=== PATIENT | female | born 1950 | race Caucasian/White ===

== ENCOUNTER 2020-08-15 18:03 | Inpatient (IN) | payer OTHER, SELFPAY ==
[~2020-08-15] VITALS: Ht 154.9 cm; Wt 56.4 kg
[2020-08-15 18:24] VITALS: Ht 154.9 cm; Wt 56.4 kg
--- NOTE | 2020-08-15 18:40 | NUR ---
PT BIBA [facility] C/O COVID SYMPTOMS X9DAYS. PT STATES SHE HAS HAD COVID SYMPTOMS SUCH FEVER, CHILLS, COUGH, SOB, MAGAÑA. STATES HER SOB WORSENED TODAY AND CALLED 911. PT STATES SHE WAS TESTED FOR COVID X6DAYS AGO AND RESULTED POSITIVE. PT NOTED TO BE 88% ON RA UPON ARRIVAL, AAOX4, AND NOTED SOB ON EXERTION. PT WAS AMBULATORY TO [facility] WITH A STEADY GAIT. DENIES PRIOR HX AND MEDICATIONS. STATES HER CURRENT MEDICATIONS WERE PRESCRIBED BY HER MD RECENTLY FOR COVID.
--- NOTE | 2020-08-15 19:19 | NUR ---
RECIEVED PT REPORT FROM DAY RN, FOR CONTINUITY OF CARE. I WILL NOW ASSUME PRIMARY CARE OF THE PT
[2020-08-15 19:38] LABS: PLATELET COUNT 234 x10^3mcL (179-408); RED CELL DISTRIBUTION WIDTH 12.4 % (12.3-17.7)
[2020-08-15 19:42] LABS: CALCIUM 8.3 mg/dL (8.5-10.1); CARBON DIOXIDE 28.1 mmol/L (21-32); CHLORIDE SERUM 94 mmol/L (98-107); CREATININE SERUM 0.8 mg/dL (0.6-1.0); GFR1 > 60 mL/min; GLUCOSE SERUM 112 mg/dL (74-106); POTASSIUM SERUM 3.6 mmol/L (3.5-5.1); SODIUM SERUM 135 mmol/L (136-145)
[2020-08-15 19:47] LABS: ALBUMIN 3.5 g/dL (3.4-5.0); ALKALINE PHOSPHATASE 81 U/L (46-116); ALT/SGPT 37 U/L (14-59); AST/SGOT 34 U/L (15-37); BILIRUBIN TOTAL 0.4 mg/dL (0.20-1.00); C REACTIVE PROTEIN 11.3 mg/dL (<=0.9); TOTAL PROTEIN, SERUM 8.1 g/dL (6.4-8.2)
[2020-08-15 19:49] LABS: BASOPHIL % 2.6 % (0.2-1.3)
--- NOTE | 2020-08-15 20:02 | NUR ---
RT AT BEDSIDE
--- NOTE | 2020-08-15 20:41 | NUR ---
PT TRANSFERRED FROM COVID TENT TO ROOM 15 FOR CONTINUITY OF CARE
--- NOTE | 2020-08-15 21:00 | NUR ---
PT RECEIVED IN ROOM. PT AOX4, SKIN W/D/I, RESP EVEN AND UNLABORED ON 3 L NC, VSS, NAD, PT STABLE AT THIS TIME
[2020-08-15 22:01] LABS: microscopic required? YES; urine erythrocyte TRACE (NEGATIVE)
--- NOTE | 2020-08-15 22:24 | NUR ---
NOTIFIED RT OF [facility]BUTEROL LINDSEY BUSCH. PT AOX4, SKIN W/D/I, RESP EVEN AND UNLABORED ON 3 L NC, PT STABLE AT THIS TIME
--- NOTE | 2020-08-16 00:01 | NUR ---
PT SLEEPING BUT EASILY AROUSABLE, RESP EVEN AND UNLABORED ON 3 L NC, SKIN W/D/I, NAD, PT STABLE AT THIS TIME
--- NOTE | 2020-08-16 02:15 | NUR ---
GAVE REPORT TO EARNEST MERCADO. PT AOX4, SKIN W/D/I, RESP EVEN AND UNLABORED ON 3 L NC, NAD, AMB WITH STEADY GAIT, PT STABLE AT THIS TIME
--- NOTE | 2020-08-16 03:10 | NUR ---
PT TRANSPORTED TO [facility] VIA [facility] ON CM BY ESPINOZA TINOCO AND JUANITA SCHMITZ.PT IN NAD
--- NOTE | 2020-08-16 03:30 | NUR ---
RECEIEVED PT FROM ED. A/OX4, FOLLOWS COMMANDS, SPEECH CLEAR. TELE 34, SINUS KIMBERLEE, HR 59. DENIES CHEST PAIN, PRESSURE, AND PALPITATIONS. DENIES PAIN. PULSES PALPABLE TO BUE/BLE. NO EDEMAN NOTED. ON 3L N/C, SPO2 95%, NO RESPIRATORY DISTRESS AT THIS TIME, BREATHING UNLABORED AND REGULAR, EVEN CHEST RISE. LUNG SOUNDS DIMINISHED. BS ACTIVE X4 QUADS, ABD SOFT, FLAT, AND NONTENDER. DENIES PAIN OR BURNING ON URINATION. GENERALIZED WEAKNESS NOTED. AMBULATORY. SKIN CLEAR. IV L AC, SL. MADE PT COMFORTABLE IN BED. BED IN LOW POSITION. CALL LIGHT WITHIN REACH. WILL CONTINUE TO MONITOR.
--- NOTE | 2020-08-16 04:10 | NUR ---
PT C/O MAGAÑA AND REQUESTED PAIN MEDICATION. GAVE PRN TYLENOL. IV LAC INFILTRATED. NEW IV ACCESS IN L FOREARM 22G, SL.
[2020-08-16 04:26] VITALS: BP 103/60
[2020-08-16 05:40] VITALS: BP 95/46
--- NOTE | 2020-08-16 07:19 | NUR ---
CALLED AND NOTIFIED DR. LUIS/DR. VEE (AEROGRAPHER FOR DR. LUIS) REGARDING PT'S BRADYCARDIA AND PT'S HEART RATE IS 40 BPM ON TELE MONITOR AND AWAITING FOR CALL BACK.
--- NOTE | 2020-08-16 07:24 | NUR ---
PT CALM AND COMFORTABLE IN BED, EASILY AROUSABLE. A/OX4, TELE 34, SINUS KIMBERLEE, HR 44. DENIES CHEST PAIN, PRESSURE, AND PALPITATIONS. ON 3L N/C, SPO2 97%, NO RESPIRATORY DISTRESS AT THIS TIME. DENIES PAIN. BED IN LOW POSITION. CALL LIGHT WITHIN REACH. ENDORSED CARE TO AM NURSE.
--- NOTE | 2020-08-16 07:45 | NUR ---
DR. VEE MADE AWARE OF PT'S LOW HR IN THE 40'S. STATED HE WOULD CHECK ON PT LATER TODAY.
[2020-08-16 07:57] LABS: BASOPHIL % 0.2 % (0.2-1.3); PLATELET COUNT 221 x10^3mcL (179-408); RED CELL DISTRIBUTION WIDTH 12.1 % (12.3-17.7)
--- NOTE | 2020-08-16 08:20 | NUR ---
PT STATES SHE PREVIOUSLY VISITED A STATION SUPERVISOR, WHO TOLD HER HER HEART IS OK, LOW HR IS NORMAL FOR HER.
[2020-08-16 08:23] LABS: CALCIUM 7.8 mg/dL (8.5-10.1); CARBON DIOXIDE 26.3 mmol/L (21-32); CHLORIDE SERUM 98 mmol/L (98-107); CHOLESTEROL 140 mg/dL (<200); CHOLESTEROL/HDL RATIO 2.8; CREATININE SERUM 0.6 mg/dL (0.6-1.0); GFR1 > 60 mL/min; GLUCOSE SERUM 156 mg/dL (74-106); HDL CHOLESTEROL 50 mg/dL (40-60); MAGNESIUM 2.5 mg/dL (1.8-2.4); POTASSIUM SERUM 4.6 mmol/L (3.5-5.1); SODIUM SERUM 135 mmol/L (136-145); TRIGLYCERIDES 60 mg/dL (<150)
--- NOTE | 2020-08-16 08:26 | NUR ---
RECEIVED REPORT FROM MARINE ARCHITECT NURSE. PT AWAKE, ALERT, ORIENTEDX4 AND VERBALLY RESPONSIVE TO HER NEEDS. DROPLET PRECAUTION OBSERVED AND MAINTAINED. PT IS ON TELE MONITOR#34 WITH SINUS KIMBERLEE WITH HEART RATE AT 50 BPM. PULSES ARE PRESENT ON BILATERAL UPPER AND LOWER EXTREMITIES. NO EDEMA NOTED AT THIS TIME. LUNG SOUNDS DIMINISHED ON 3L/MIN OXYGEN ON NASAL CANNULA. BOWEL SOUNDS ACTIVE AND LAST BM ON 08/15/2020. PT IS CONTINENT OF BOWEL AND BLADDER. GENERALIZED BODY WEAKNESS DUE TO SOB. SKIN INTACT, WARM, AND DRY TO TOUCH. PT BED AT LOWEST LEVEL AND CALL LIGHT PROVIDED WITHIN EASY REACH.
[2020-08-16 08:29] VITALS: BP 90/48
[2020-08-16 11:43] VITALS: BP 110/56
[2020-08-16 16:13] VITALS: BP 108/49
--- NOTE | 2020-08-16 21:43 | NUR ---
RECEIVED PT FROM DAY RN. PLEASANT LADY ON 3L NC AND TOLERATING WELL. STATES MILD SOBW HEN SHE GETS UP TO BSC. EDUCATED PT TO USE CALL LIGHT IN ORDER FOR ME TO ASSIST HER TO BSC NEEDED. PT A/O X4. LUNG SOUNDS DIMINISHED BILAT. TELE 34 SB LOW 40'S PER DAY SHIFT. MD AWARE AND PT ASYMPTOMATIC. PULSES PRESENT AND PALPABLE. DENIES CHEST PAIN. BOWEL SOUNDS X4 NORMOACTIVE, PT INDEPENDENT IN CARE. NO WOUNDS PRESENT AND DENIES PAIN. PT HAS LH 22 THAT FLUSHES WELL. PT TO RECEIVE PLASMA TONIGHT. ALL NEEDS MET AT THIS TIME, BED LOW AND LOCKED WITH CALL LIGHT IN REACH. WILL CONTINUE TO MONITOR AT THIS TIME
--- NOTE | 2020-08-17 01:04 | NUR ---
RECEIVED PLASMA FROM BLOOD BANK. PRE VITALS 97.8 HR 55 BP 101/49 RR 16 AT 95% ON 3L NC. TUBING PRIMED WITH NS. VERIFIED BY MARIUM TINOCO AT BEDSIDE. IV IN RFA FLUSHES WELL.
--- NOTE | 2020-08-17 01:36 | NUR ---
15 MIN VITALS TAKEN AT 0136. NO S/S OF REACTION NOTED. HR 49 TEMP 98.7, RR 18, BP 109/45 AT 97% ON 3L NC. PT TOLERATING WELL. INFUSION STARTEED AT 50ML/HR. NOW RUNNING AT 150ML/HR. WILL CONTINUE TO MONITOR
--- NOTE | 2020-08-17 03:34 | NUR ---
PLASMA INFUSION FINISHED. NO S/S OF REACTION NOTED. PT TOLERATED WELL. VITALS 98.1 HR 51 BP 108/32 RR 16 AT 96%. WILL CONTINUE TO MONITOR. PT AMBULATED TO BSC-INCREASED COUGHING AND SOB. PT BUMPED TO 4.5L NC. SITTING BACK IN BED AND SOB SUBSIDED AND COUGHING MINIMAL. WILL CONTINUE TO MONITOR
[2020-08-17 04:30] VITALS: BP 106/57
--- NOTE | 2020-08-17 07:02 | NUR ---
PT REMAINED STABLE THROUGHOUT THE NIGHT. PT ON 3L NC, SATTING WELL TOLERATING WELL. NO SIGNIFICANT CHANGES OVERNIGHT. ALL NEEDS WERE MET DURING THIS SHIFT. PT HAS NO CONCERNS AT THIS TIME. IV TO LH REMAINS INTACT AND PATENT, SALINE LOCKED. CALL LIGHT IN REACH, WILL ENDORSE ALL CARE TO AM RN.
[2020-08-17 07:13] LABS: BASOPHIL % 0.1 % (0.2-1.3); PLATELET COUNT 228 x10^3mcL (179-408); RED CELL DISTRIBUTION WIDTH 12.4 % (12.3-17.7)
[2020-08-17 07:37] LABS: ALBUMIN 2.7 g/dL (3.4-5.0); BILIRUBIN DIRECT 0.09 mg/dL (0.0-0.2); BILIRUBIN TOTAL 0.21 mg/dL (0.20-1.00); TOTAL PROTEIN, SERUM 5.9 g/dL (6.4-8.2)
[2020-08-17 07:46] LABS: CALCIUM 8.7 mg/dL (8.5-10.1); CARBON DIOXIDE 27.5 mmol/L (21-32); CHLORIDE SERUM 101 mmol/L (98-107); CREATININE SERUM 0.7 mg/dL (0.6-1.0); GFR1 > 60 mL/min; GLUCOSE SERUM 104 mg/dL (74-106); MAGNESIUM 2.3 mg/dL (1.8-2.4); POTASSIUM SERUM 3.9 mmol/L (3.5-5.1); SODIUM SERUM 138 mmol/L (136-145)
[2020-08-17 09:14] VITALS: BP 105/40
--- NOTE | 2020-08-17 09:14 | NUR ---
ASSUMED CARE FOR PT. PT ALERT AND ORIENTED X4, ABLE TO MAKE NEEDS KNOWN. PT ADVISED TO CALL FOR ASSISTANCE BEFORE GETTING OUT OF BED. OXYGEN @ 3L NC. LUNGS DIMINISHED, DRY COUGH NOTED. MEDS GIVEN PER SEP. SAFETY MEASURES IN PLACE, CALL SIERRA IN REACH. STAFF WILL MONITOR.
[2020-08-17 12:40] VITALS: BP 145/48
[2020-08-17 16:06] VITALS: BP 107/49
--- NOTE | 2020-08-17 19:57 | NUR ---
RECEIVED PT FROM DAY RN. PT CURRENTY IN ROOM PRAYING. PT VERY INVOLVED IN HER SPIRITUAL NEEDS AND STATES SHE IS HAVING HER NEEDS MET AT THIS TIME. PT ON 4L NC AND WEANED DOWN TO .PT TOLERATING WELL AND DENIES SOB. STATES SHE FEELS STRONGER TODAY. PT REQUESTED TO HOLD EHR STOOL SOFTENERS SINCE SHE HAS HAD 4 BOWEL MOVEMENTS TODAY. WILL RELAY TO DAY RN AND HOLD TONIGHT. PT PRESENTING WITH CONSISTENT DRY COUGH, WILL GIVE MUCINCX PRN. PT TELE 35 SB. LUNG SOUNDS DIMINISHED BILAT. PT USES BSC AND TOLERATES WELL. SKIN INTACT-PT AMBULATORY WITH GENERALIZED WEAKNESS PRESENT. PT HAS RFA 20 FLUSHED AND SAlINE LOCKED AT THIS TIME. ALL NEEDS MET AT THIS TIME, BED LOW AND LOCKED WITH CALL LIGHTIN REACH. WILL CONTINUE TO MONITOR
[2020-08-17 20:53] VITALS: BP 102/42
--- NOTE | 2020-08-18 00:39 | NUR ---
PT RESTING IN BED. OXYGEN AT 4L NC, AND TOLERATING WELL. NO S/S OF DISTRESS. WILL CONTINUE TO MONITOR
--- NOTE | 2020-08-18 04:48 | NUR ---
PT SLEPT WELL ALL NIGHT ON 4L NC. NO DISTRESS OR PAIN REPORTED. PT TELE SHOWED SINUS KIMBERLEE WITH HR DROPPING TO 36 LOWEST. PT AWOKEN EASILY AND ASYMPTOMATIC. NON-SUSTAINED. ALL OTHER NEEDS MET, WILL CONTINUE TO MONITOR AND REPORT TO DAY RN
[2020-08-18 05:49] VITALS: BP 114/46
[2020-08-18 07:05] LABS: ALKALINE PHOSPHATASE 64 U/L (46-116); ALT/SGPT 33 U/L (14-59); AST/SGOT 23 U/L (15-37); BILIRUBIN DIRECT 0.07 mg/dL (0.0-0.2); BILIRUBIN TOTAL 0.2 mg/dL (0.20-1.00); CALCIUM 8.5 mg/dL (8.5-10.1); CARBON DIOXIDE 27.9 mmol/L (21-32); CHLORIDE SERUM 103 mmol/L (98-107); CREATININE SERUM 0.7 mg/dL (0.6-1.0); GFR1 > 60 mL/min; GLUCOSE SERUM 97 mg/dL (74-106); MAGNESIUM 2.2 mg/dL (1.8-2.4); POTASSIUM SERUM 4.3 mmol/L (3.5-5.1); SODIUM SERUM 139 mmol/L (136-145); TOTAL PROTEIN, SERUM 6.7 g/dL (6.4-8.2)
--- NOTE | 2020-08-18 07:40 | NUR ---
PATIENT RECEIVED FROM [facility] AND REPROTED ONLY TO HAVE HIGH CHOLESTEROL. SHE HAS BEEN WITH SYMPTOMS THAT BROUGHT HER TO THE HOSPTIAL. SHE HAS RECIEVED REMDESIVIR , ZITHROMAX, DECADRON AND HAS BEEN WITH PLASMA RECEIVED ON SHE HAS BEEN WITH SOME WEAKNESS BUT IS ABLE TO USE THE BSC. SHE HAS BEEN ON 4 LITES NASAL CANULA AND SLEEP WELL LAST NIGHT PER REPORT.
[2020-08-18 07:46] LABS: BASOPHIL % 0.2 % (0.2-1.3); PLATELET COUNT 252 x10^3mcL (179-408); RED CELL DISTRIBUTION WIDTH 12.4 % (12.3-17.7)
[2020-08-18 07:47] LABS: ALBUMIN 2.8 g/dL (3.4-5.0)
--- NOTE | 2020-08-18 08:00 | NUR ---
PATIENT RECEIVED FROM SUPERVISOR [employer] AND REPROTED ONLY TO HAVE HIGH CHOLESTEROL. SHE HAS BEEN WITH SYMPTOMS THAT BROUGHT HER TO THE HOSPTIAL. SHE HAS RECIEVED REMDESIVIR , ZITHROMAX, DECADRON AND HAS BEEN WITH PLASMA RECEIVED ON SHE HAS BEEN WITH SOME WEAKNESS BUT IS ABLE TO USE THE BSC. SHE HAS BEEN ON 4 LITES NASAL CANULA AND SLEEP WELL LAST NIGHT PER REPORT. =
[2020-08-18 09:15] VITALS: BP 112/53
[2020-08-18 12:33] VITALS: BP 133/64
--- NOTE | 2020-08-18 13:05 | NUR ---
PATIENT RECEIVED FROM [facility] [employer] WORK[employer] AND REPROTED ONLY TO HAVE HIGH CHOLESTEROL. SHE HAS BEEN WITH SYMPTOMS THAT BROUGHT HER TO THE HOSPTIAL. SHE HAS RECIEVED REMDESIVIR , ZITHROMAX, DECADRON AND HAS BEEN WITH PLASMA RECEIVED ON SHE HAS BEEN WITH SOME WEAKNESS BUT IS ABLE TO USE THE BSC. SHE HAS BEEN ON 4 LITES NASAL CANULA AND SLEEP WELL LAST NIGHT PER REPORT. =
--- NOTE | 2020-08-18 16:43 | NUR ---
PATEINT CHECKED ON DUE TO LOW HEARTRATE PATIENT ANSWERS APPROPRIATELY AND DENIES ANY LIONEL PAIN OR PALPATATIONS.
[2020-08-18 16:51] VITALS: BP 130/58
--- NOTE | 2020-08-18 18:50 | NUR ---
PATIENT RESTED MOST OF THE DAY BETWEEN CARES. 4TH DOSE OF REMDESIVER GIVEN. SS CONSULT FOR HOME 02. 3L NC SATTING IN THE MID 90'S. TELE NSB. RON CARROLL RN
[2020-08-18 21:27] VITALS: BP 120/56
[2020-08-19 05:07] VITALS: BP 97/49
[2020-08-19 06:49] LABS: BASOPHIL % 0.2 % (0.2-1.3); PLATELET COUNT 277 x10^3mcL (179-408); RED CELL DISTRIBUTION WIDTH 12.2 % (12.3-17.7)
[2020-08-19 07:29] LABS: CARBON DIOXIDE 27.4 mmol/L (21-32); CHLORIDE SERUM 102 mmol/L (98-107); CREATININE SERUM 0.7 mg/dL (0.6-1.0); GFR1 > 60 mL/min; GLUCOSE SERUM 112 mg/dL (74-106); MAGNESIUM 2.1 mg/dL (1.8-2.4); POTASSIUM SERUM 3.9 mmol/L (3.5-5.1); SODIUM SERUM 139 mmol/L (136-145)
[2020-08-19 07:37] LABS: BILIRUBIN DIRECT 0.09 mg/dL (0.0-0.2); BILIRUBIN TOTAL 0.28 mg/dL (0.20-1.00); TOTAL PROTEIN, SERUM 6.7 g/dL (6.4-8.2)
[2020-08-19 07:47] LABS: ALBUMIN 2.9 g/dL (3.4-5.0)
--- NOTE | 2020-08-19 08:00 | NUR ---
RECEIVED PATIENT WHO HAS BEEN RUNNING LOW ON HER PULSES AND ATTIMES IN THE THIRTIES. SHE AHS DIMINISHED BREATH SOUNDS AND A WET SOUNDING COUGH BUT SO FAR NOTHING EXPECTORATED. PATIENT HAS ACTIVE BOWEL SOUNDS AND TOLERATED THE DIET OFFERED. SHE HAS BEEN OOB TO THE BEDSIDE COMODE WITH ASSIST AND DENIES ANY CHEST PAIN OR SOB AT THIS TIME ANDON THE OXYMIZER ORDERED AND SHE HAS STRONG PULSES ANO SKIN IS WARM AND DRY. PAIENT IS AWAITING 02 ORDER FOR AT HOME. NO ACUTE DISTRESS AND CONTINUE DON THE MEDICATION ORDERED AITH NO ADVERSE REACTION.
[2020-08-19 09:30] VITALS: BP 101/43
[2020-08-19 12:25] VITALS: BP 107/55
--- NOTE | 2020-08-19 15:13 | NUR ---
SPOKE WITH THE DAUGHTER ON THE PHONE AND SHE HAS NOT RECEIVED 02 YET AND NOTHING HAS BEEN HEARD ON THIS SIDE EITHER. ADVISED THE PATIENT IS DOING WELL AND IS ANXIOUS TO GO HOME.
--- NOTE | 2020-08-19 16:30 | NUR ---
REC'D CALL BACK FROM DR. VEE. NOTIFIED THAT HOME O2 HAS BEEN DELIVERED. STATED WILL ENTER DISCHARGE ORDERS.
[2020-08-19 16:46] VITALS: BP 102/53
[2020-08-19] MEDS ORDERED: VITC PO (16:50)
[2020-08-19] MEDS ORDERED: VENTOLIN H0.09 MG/A1 INH (16:50)
[2020-08-19] MEDS ORDERED: ZINC SULFATE220 MG PO (16:50)
[2020-08-19] MEDS ORDERED: DECADRON6 MG PO (16:51)
[2020-08-19] MEDS ORDERED: ELIQUIS5 MG PO (16:52)
--- NOTE | 2020-08-19 17:09 | NUR ---
REMDESIVIR HANGING AT THIS TIME AND WHEN COMPLETED THE PATIENT CAN BE DISCHARGED HOME.
[2020-08-19 17:27] VITALS: BP 102/53
--- NOTE | 2020-08-19 20:44 | NUR ---
PT DISCHARGED AND WHEELED DOWN WITH OXYGEN BY EARNEST DE LA VEGA. NO ACUTE DISTRESS AND DENIES PAIN OR DISCOMFORT AT TIME OF DISCHARGE.
[2020-08-19 21:23] VITALS: BP 114/51
== END 2020-08-19 23:21 | disposition home or self-care (01) | DRG 177 ==
LOC: ED 18:03 → DU 21:05
PROVIDERS: Emergency Medicine; ADMIT Hospitalist; ATTEND Hospitalist
PROC: XW033E5 Introduction of Remdesivir Anti-infective into Peripheral Vein, Percutaneous Approach, New Technology Group 5 (ICD-10-PCS; principal; 2020-08-16)
PROC: XW13325 Transfusion of Convalescent Plasma (Nonautologous) into Peripheral Vein, Percutaneous Approach, New Technology Group 5 (ICD-10-PCS; 2020-08-17)
DX: U07.1 COVID-19 (principal); J12.82 Pneumonia due to coronavirus disease 2019; D68.9 Coagulation defect, unspecified; E78.00 Pure hypercholesterolemia, unspecified; E78.5 Hyperlipidemia, unspecified; Z88.8 Allergy status to other drugs, medicaments and biological substances; Z79.899 Other long term (current) drug therapy; Z79.01 Long term (current) use of anticoagulants; Z79.891 Long term (current) use of opiate analgesic
CPT/HCPCS: 36600; 83880; 85378; 87804; G0378; J0456; J0696; J1100; J1650; J3535; J7050; J7060